=== PATIENT | male | born 1980 | race Caucasian/White ===

== ENCOUNTER 2017-12-23 16:38 | Emergency (ER) | payer SELFPAY ==
[2017-12-23] MEDS ORDERED: Sodium Chloride 0.9% 1,000 ML IV ONE (17:38)
[2017-12-23] MEDS ORDERED: Ketorolac 30 MG/ML SDV IVPUSH ONE (17:38)
[2017-12-23] MEDS ORDERED: Ondansetron 4 MG/2 ML SDV IVPUSH ONE (17:38)
--- NOTE | 2017-12-23 17:48 | EDM.PDOC ---
ED HPI GENERAL MEDICAL PROBLEM - General Chief Complaint: Abdominal Pain Stated Complaint: PT HAS STOMACH PAINS Time Seen by Provider: 12/23/17 17:30 Source of Information: Reports: Patient History Limitations: Reports: No Limitations - History of Present Illness INITIAL COMMENTS - FREE TEXT/NARRATIVE: HISTORY AND PHYSICAL: History of present illness: Patient comes to the emergency room complaining of right lower abdomen and right flank pain. Symptoms started yesterday mid morning and have continued into today. He has a history of kidney stones with prior stent on the right. Rates his pain currently as 8/10. He's been taking Tylenol and ibuprofen occasionally which does not really provide any improvement in his symptoms. He' s had no fever or chills, but he states that he works outside and so it is difficult to tell if he is having chills or if it's cold temperatures. He's had no chest pain, shortness of breath or difficulty breathing. no flu-like symptoms or symptoms of illness/infection. No burning with urination or hematuria. No urinary frequency. Bowels are normal. No muscle or joint aches or pains. Review of systems: As per history of present illness and below otherwise all systems reviewed and negative. Past medical history: As per history of present illness and as reviewed below otherwise noncontributory. Surgical history: As per history of present illness and as reviewed below otherwise noncontributory. Social history: No reported history of drug or alcohol abuse. Family history: As per history of present illness and as reviewed below otherwise noncontributory. Physical exam: Vitals are reviewed by me. Temp 99.2. HEENT: Atraumatic, normocephalic. Oral mucous membranes moist and pink., throat clear. neck supple, nontender, no lymphadenopathy. Lungs: Clear to auscultation, breath sounds equal bilaterally. Heart: S1S2, regular rate and rhythm. Abdomen: Bowel sounds are normoactive throughout. Abdomen is Soft, nondistended. He is tender over his right lower quadrant and flank area. Negative for masses, guarding or rebound. Mild CVA tenderness on the R. Pelvis: Stable nontender. Genitourinary: Deferred. Rectal: Deferred. Extremities: Atraumatic. No cyanosis or edema. Neurovascular unremarkable. Neuro: Awake, alert, oriented. Motor and sensory unremarkable throughout. Exam nonfocal. Diagnostics: [CBC, CMP, UA] Therapeutics: [1 L normal saline, Toradol 30 mg IV] Impression: [abdominal pain] Plan: [CBC, CMP, UA are WNL, which is discussed w/ patient. White count is less than 7. Temperature is 99.2 on presentation to the ER. Discussed that his abdominal pain could be an early sign signs of infection or inflammatory process as well as a kidney stone. Offered CT of his abdomen and pelvis which patient declines at this time stating that he does not have insurance to pay for it and he would like to see how he does over the next couple of days. We reviewed symptoms that would warrant a return to the emergency room. He is in agreement with today's plan and discussion. He is given Rx for Hydrocodone 5/325mg (#10) si po q 6 hours prn pain 0 RF's. All questions are answered and concerns are addressed. ] Definitive disposition and diagnosis as appropriate pending reevaluation and review of above. RLQ abdomen Pain Score (Numeric/FACES): 8 - Related Data Allergies Allergy/AdvReac Type Severity Reaction Status Date / Time No Known Allergies Allergy Verified 12/23/17 17:16 Home Meds: Home Meds . [No Known Home Meds] 12/23/17 [History] Past Medical History - Past Health History Medical/Surgical History: Denies Medical/Surgical History Genitourinary History: Reports: Renal Calculus Social & Family History - Family History Family Medical History: Noncontributory - Tobacco Use Smoking Status *Q: Current Every Day Smoker Years of Tobacco use: 20 Packs/Tins Daily: 1 - Recreational Drug Use Recreational Drug Use: No ED ROS GENERAL - Review of Systems Review Of Systems: ROS reveals no pertinent complaints other than HPI. ED EXAM, GI/ABD - Physical Exam Exam: See Below Course - Vital Signs Last Recorded V/S: Last Vital Signs Temp 99.1 F 12/23/17 18:49 Pulse 87 12/23/17 18:49 Resp 18 12/23/17 18:49 BP 132/68 12/23/17 18:49 Pulse Ox 98 12/23/17 18:49 - Orders/Labs/Meds Labs: Laboratory Tests 12/23/17 12/23/17 12/23/17 Range/Units 17:20 17:43 17:43 WBC 6.20 (4.0-11.0) K/uL RBC 4.79 (4.50-5.90) M/uL Hgb 15.0 (13.0-17.0) g/dL Hct 42.4 (38.0-50.0) % MCV 88.5 (80.0-98.0) fL MCH 31.3 (27.0-32.0) pg MCHC 35.4 (31.0-37.0) g/dL RDW Std Deviation 42.6 (28.0-62.0) fl RDW Coeff of Ritika 13 (11.0-15.0) % Plt Count 252 (150-400) K/uL MPV 9.00 (7.40-12.00) fL Neut % (Auto) 65.4 (48.0-80.0) % Lymph % (Auto) 26.1 (16.0-40.0) % [place] % (Auto) 7.1 (0.0-15.0) % Eos % (Auto) 0.8 (0.0-7.0) % Baso % (Auto) 0.6 (0.0-1.5) % Neut # (Auto) 4.1 (1.4-5.7) K/uL Lymph # (Auto) 1.6 (0.6-2.4) K/uL [place] # (Auto) 0.4 (0.0-0.8) K/uL Eos # (Auto) 0.1 (0.0-0.7) K/uL Baso # (Auto) 0.0 (0.0-0.1) K/uL Nucleated RBC % 0.0 /100WBC Nucleated RBCs # 0 K/uL Sodium 141 (136-146) mmol/L Potassium 3.8 (3.5-5.1) mmol/L Chloride 108 (98-110) mmol/L Carbon Dioxide 24 (21-31) mmol/L BUN 12 (6.0-23.0) mg/dL Creatinine 0.9 (0.6-1.5) mg/dL Est Cr Clr Drug Dosing 111.27 mL/min Estimated GFR (MDRD) > 60.0 ml/min Glucose 97 (60-110) mg/dL Calcium 9.3 (8.8-10.8) mg/dL Total Bilirubin 0.5 (0.1-1.5) mg/dL AST 28 (5-40) IU/L ALT 21 (8-54) IU/L Alkaline Phosphatase 71 (40-150) Total Protein 6.6 (6.0-8.0) g/dL Albumin 4.1 (3.5-5.0) g/dL Globulin 2.5 (2.0-3.5) g/dL Albumin/Globulin Ratio 1.6 (1.3-2.8) Urine Color YELLOW Urine Appearance CLEAR Urine pH 7.5 (5.0-8.0) Ur Specific [place] 1.020 (1.001-1.035) Urine Protein NEGATIVE (NEGATIVE) mg/dL Urine Glucose (UA) NEGATIVE (NEGATIVE) mg/dL Urine Ketones NEGATIVE (NEGATIVE) mg/dL Urine Occult Blood NEGATIVE (NEGATIVE) Urine Nitrite NEGATIVE (NEGATIVE) Urine Bilirubin NEGATIVE (NEGATIVE) Urine Urobilinogen 1.0 (<2.0) EU/dL Ur Leukocyte Esterase NEGATIVE (NEGATIVE) Urine RBC 0-1 (0-2/HPF) Urine WBC 0-3 (0-5/HPF) Ur Epithelial Cells FEW (NONE-FEW) Urine Bacteria FEW (NEGATIVE) Meds: Medications Discontinued Medications Generic Name Dose Route Start Last Admin Trade Name Freq PRN Reason Stop Dose Admin Sodium Chloride 1,000 mls @ 999 mls/hr 12/23/17 17:38 12/23/17 17:52 Normal Saline IV 12/23/17 18:38 999 mls/hr STAT ONE Administration Ketorolac Tromethamine 30 mg 12/23/17 17:38 12/23/17 17:52 Toradol IVPUSH 12/23/17 17:39 30 mg ONETIME ONE Administration Ondansetron HCl 4 mg 12/23/17 17:38 12/23/17 17:52 Zofran IVPUSH 12/23/17 17:39 4 mg ONETIME ONE Administration Departure - Departure Time of Disposition: 18:40 Disposition: Home, Self-Care 01 Condition: Good Clinical Impression: Abdominal pain - Discharge Information Instructions: Abdominal Pain, Adult Referrals: PCP,None [Primary Care Provider] - Forms: ED Department Discharge Additional Instructions: The following information is given to patients seen in the emergency department who are being discharged to home. This information is to outline your options for follow-up care. We provide all patients seen in our emergency department with a follow-up referral. The need for follow-up, as well as the timing and circumstances, are variable depending upon the specifics of your emergency department visit. If you don't have a primary care physician on staff, we will provide you with a referral. We always advise you to contact your personal physician following an emergency department visit to inform them of the circumstance of the visit and for follow-up with them and/or the need for any referrals to a consulting specialist. The emergency department will also refer you to a specialist when appropriate. This referral assures that you have the opportunity for follow-up care with a specialist. All of these measure are taken in an effort to provide you with optimal care, which includes your follow-up. Under all circumstances we always encourage you to contact your private physician who remains a resource for coordinating your care. When calling for follow-up care, please make the office aware that this follow-up is from your recent emergency room visit. If for any reason you are refused follow-up, please contact the [facility] emergency department at and asked to speak to the emergency department charge nurse. [facility] [address] [place], [place] [id number] Establish care with a local primary care provider at the clinic listed above in follow-up there in 48-72 hours. Take medications as prescribed. Push fluids, get plenty of rest. Return to ER as needed as discussed.
[2017-12-23 18:09] LABS: CHLORIDE,CL 108 mmol/L (98-110); SODIUM,NA 141 mmol/L (136-146)
== END 2017-12-23 18:49 | disposition home or self-care (01) ==
LOC: MW.ED 16:38
DX: R10.31 Right lower quadrant pain (principal); F17.210 Nicotine dependence, cigarettes, uncomplicated; Z87.442 Personal history of urinary calculi
CPT/HCPCS: 36415; 80053; 81001; 85025; 96361; 96374; 96375; 99284; J1885; J2405; J7040

== ENCOUNTER 2017-12-25 12:37 | Emergency (ER) | payer SELFPAY ==
[2017-12-25] MEDS ORDERED: Sodium Chloride 0.9% 2.5 ML Syringe FLUSH PRN (13:58)
[2017-12-25] MEDS ORDERED: Sodium Chloride 0.9% 10 ML Syringe FLUSH PRN (13:58)
[2017-12-25] MEDS ORDERED: Sodium Chloride 0.9% 1,000 ML IV ONE (13:58)
[2017-12-25] MEDS ORDERED: Ondansetron 4 MG/2 ML SDV IVPUSH ONE (14:07)
[2017-12-25] MEDS ORDERED: Morphine 2 MG/ML Syringe IVPUSH ONE (14:07)
--- NOTE | 2017-12-25 14:13 | EDM.PDOC ---
ED HPI GENERAL MEDICAL PROBLEM - General Chief Complaint: Abdominal Pain Stated Complaint: ABD PAIN Time Seen by Provider: 12/25/17 13:59 Source of Information: Reports: Patient History Limitations: Reports: No Limitations - History of Present Illness INITIAL COMMENTS - FREE TEXT/NARRATIVE: HISTORY AND PHYSICAL: History of present illness: [Patient comes to the emergency room complaining of worsening abdominal pain. He was evaluated in the emergency room on December 23 by this examiner. He was instructed to return to the emergency room for reevaluation if he felt that he was worsening. Since he was discharged home he's been experiencing fevers and chills. He has not checked his temperature but has had a lot of night sweats. His right lower quadrant abdominal discomfort has worsened. He has since developed pain to both sides of his low back. No change in urination, no blood in his urine. No chest pain, shortness of breath or difficulty breathing. No sore throat, earaches or runny nose. No headaches. He is overall just not feeling well. He has been taking the hydrocodone prn for his pain. Has 4 tablets left. He has not had any nausea or vomiting. His appetite has been very good with him eating large meals several times per day. Is not taking any medications for his symptoms. He has not taken any medications for his pain. Review of systems: As per history of present illness and below otherwise all systems reviewed and negative. Past medical history: As per history of present illness and as reviewed below otherwise noncontributory. Surgical history: As per history of present illness and as reviewed below otherwise noncontributory. Social history: No reported history of drug or alcohol abuse. Family history: As per history of present illness and as reviewed below otherwise noncontributory. Physical exam: Gen.: Well-developed well-nourished male in no acute distress. Vital signs are stable and reviewed by me. Skin feels warm to touch, but is afebrile emergency room. Oral mucous members are pink and moist. HEENT: Atraumatic, normocephalic. Oral mucous memory are pink and moist. Neck supple no lymphadenopathy. Lungs: Clear to auscultation, breath sounds equal bilaterally. Heart: S1S2, regular rate and rhythm. Abdomen: Sounds are normoactive throughout. Abdomen is soft and nondistended. He is tender with palpation over the right side of his abdomen worse to right lower quadrant. No guarding. Positive rebound. Negative for costovertebral tenderness. Pelvis: Stable nontender. Genitourinary: Deferred. Rectal: Deferred. Extremities: Atraumatic, no cyanosis or edema to feet or lower legs. Neurovascular unremarkable. Neuro: Awake, alert, oriented. Motor and sensory unremarkable throughout. Exam nonfocal. Diagnostics: [CBC, CMP, urinalysis, amylase, lipase, CT abdomen and pelvis with contrast] Therapeutics: [Morphine 2 mg IV, Zofran 4 mg IV, 1 L normal saline] Impression: [RLQ abd pain] Plan: [Discussed with patient: his CT abd and pelvis shows no abnormalities. Labs are WNL, amylase and lipase are normal. UA is clear. Urged him to follow with PCP for further work up as emergent conditions have been ruled out today. He verbalized understanding of today's discussed. Strict return precautions are reviewed. Rx written for Hydrocodone 5/325mg (#10) si po q 6 hours prn pain 0 RF's. Definitive disposition and diagnosis as appropriate pending reevaluation and review of above. right abdominal Pain Score (Numeric/FACES): 9 - Related Data Allergies Allergy/AdvReac Type Severity Reaction Status Date / Time No Known Allergies Allergy Verified 12/25/17 13:29 Home Meds: Home Meds . [No Known Home Meds] 12/23/17 [History] Past Medical History - Past Health History Medical/Surgical History: Denies Medical/Surgical History HEENT History: Reports: None Cardiovascular History: Reports: None Respiratory History: Reports: None Gastrointestinal History: Reports: None Genitourinary History: Reports: Renal Calculus Musculoskeletal History: Reports: None Neurological History: Reports: None Psychiatric History: Reports: None Endocrine/Metabolic History: Reports: None Hematologic History: Reports: None Immunologic History: Reports: None Oncologic (Cancer) History: Reports: None Dermatologic History: Reports: None - Past Surgical History Head Surgeries/Procedures: Reports: None HEENT Surgical History: Reports: None Cardiovascular Surgical History: Reports: None Respiratory Surgical History: Reports: None GI Surgical History: Reports: None Male Surgical History: Reports: None Endocrine Surgical History: Reports: None Neurological Surgical History: Reports: None Musculoskeletal Surgical History: Reports: None Oncologic Surgical History: Reports: None Dermatological Surgical History: Reports: None Social & Family History - Family History Family Medical History: Noncontributory - Tobacco Use Smoking Status *Q: Current Every Day Smoker Years of Tobacco use: 20 Packs/Tins Daily: 1 - Caffeine Use Caffeine Use: Reports: Soda - Recreational Drug Use Recreational Drug Use: No ED ROS GENERAL - Review of Systems Review Of Systems: ROS reveals no pertinent complaints other than HPI. ED EXAM, GI/ABD - Physical Exam Exam: See Below Course - Vital Signs Last Recorded V/S: Last Vital Signs Temp 97.5 F 12/25/17 13:29 Pulse 79 12/25/17 13:29 Resp 18 12/25/17 13:29 BP 141/92 H 12/25/17 13:29 Pulse Ox 98 12/25/17 13:29 - Orders/Labs/Meds Orders: Active Orders 24 hr Category Date Time Status Saline Lock Insert [OM.PC] Stat Oth 12/25/17 13:58 Ordered Labs: Laboratory Tests 12/25/17 12/25/17 12/25/17 Range/Units 14:12 14:12 14:12 WBC 10.62 (4.0-11.0) K/uL RBC 5.23 (4.50-5.90) M/uL Hgb 16.2 (13.0-17.0) g/dL Hct 46.1 (38.0-50.0) % MCV 88.1 (80.0-98.0) fL MCH 31.0 (27.0-32.0) pg MCHC 35.1 (31.0-37.0) g/dL RDW Std Deviation 41.9 (28.0-62.0) fl RDW Coeff of Ritika 13 (11.0-15.0) % Plt Count 263 (150-400) K/uL MPV 8.80 (7.40-12.00) fL Neut % (Auto) 75.3 (48.0-80.0) % Lymph % (Auto) 18.4 (16.0-40.0) % [place] % (Auto) 5.3 (0.0-15.0) % Eos % (Auto) 0.6 (0.0-7.0) % Baso % (Auto) 0.4 (0.0-1.5) % Neut # (Auto) 8.0 H (1.4-5.7) K/uL Lymph # (Auto) 2.0 (0.6-2.4) K/uL [place] # (Auto) 0.6 (0.0-0.8) K/uL Eos # (Auto) 0.1 (0.0-0.7) K/uL Baso # (Auto) 0.0 (0.0-0.1) K/uL Nucleated RBC % 0.0 /100WBC Nucleated RBCs # 0 K/uL Sodium 140 (136-146) mmol/L Potassium 3.6 (3.5-5.1) mmol/L Chloride 108 (98-110) mmol/L Carbon Dioxide 23 (21-31) mmol/L BUN 9 (6.0-23.0) mg/dL Creatinine 0.8 (0.6-1.5) mg/dL Est Cr Clr Drug Dosing 126.43 mL/min Estimated GFR (MDRD) > 60.0 ml/min Glucose 107 (60-110) mg/dL Calcium 9.5 (8.8-10.8) mg/dL Total Bilirubin 0.5 (0.1-1.5) mg/dL AST 23 (5-40) IU/L ALT 21 (8-54) IU/L Alkaline Phosphatase 64 (40-150) C-Reactive Protein < 0.02 (0.0-0.5) mg/dL Total Protein 7.0 (6.0-8.0) g/dL Albumin 4.3 (3.5-5.0) g/dL Globulin 2.7 (2.0-3.5) g/dL Albumin/Globulin Ratio 1.6 (1.3-2.8) Amylase 81 (10-90) U/L Lipase 52 (7-80) U/L Urine Color Urine Appearance Urine pH (5.0-8.0) Ur Specific [place] (1.001-1.035) Urine Protein (NEGATIVE) mg/dL Urine Glucose (UA) (NEGATIVE) mg/dL Urine Ketones (NEGATIVE) mg/dL Urine Occult Blood (NEGATIVE) Urine Nitrite (NEGATIVE) Urine Bilirubin (NEGATIVE) Urine Urobilinogen (<2.0) EU/dL Ur Leukocyte Esterase (NEGATIVE) Urine RBC (0-2/HPF) Urine WBC (0-5/HPF) Ur Epithelial Cells (NONE-FEW) Urine Bacteria (NEGATIVE) 12/25/17 Range/Units 14:30 WBC (4.0-11.0) K/uL RBC (4.50-5.90) M/uL Hgb (13.0-17.0) g/dL Hct (38.0-50.0) % MCV (80.0-98.0) fL MCH (27.0-32.0) pg MCHC (31.0-37.0) g/dL RDW Std Deviation (28.0-62.0) fl RDW Coeff of Ritika (11.0-15.0) % Plt Count (150-400) K/uL MPV (7.40-12.00) fL Neut % (Auto) (48.0-80.0) % Lymph % (Auto) (16.0-40.0) % [place]ran % (Auto) (0.0-15.0) % Eos % (Auto) (0.0-7.0) % Baso % (Auto) (0.0-1.5) % Neut # (Auto) (1.4-5.7) K/uL Lymph # (Auto) (0.6-2.4) K/uL [place]chran # (Auto) (0.0-0.8) K/uL Eos # (Auto) (0.0-0.7) K/uL Baso # (Auto) (0.0-0.1) K/uL Nucleated RBC % /100WBC Nucleated RBCs # K/uL Sodium (136-146) mmol/L Potassium (3.5-5.1) mmol/L Chloride (98-110) mmol/L Carbon Dioxide (21-31) mmol/L BUN (6.0-23.0) mg/dL Creatinine (0.6-1.5) mg/dL Est Cr Clr Drug Dosing mL/min Estimated GFR (MDRD) ml/min Glucose (60-110) mg/dL Calcium (8.8-10.8) mg/dL Total Bilirubin (0.1-1.5) mg/dL AST (5-40) IU/L ALT (8-54) IU/L Alkaline Phosphatase (40-150) C-Reactive Protein (0.0-0.5) mg/dL Total Protein (6.0-8.0) g/dL Albumin (3.5-5.0) g/dL Globulin (2.0-3.5) g/dL Albumin/Globulin Ratio (1.3-2.8) Amylase (10-90) U/L Lipase (7-80) U/L Urine Color YELLOW Urine Appearance CLEAR Urine pH 7.0 (5.0-8.0) Ur Specific [place] 1.010 (1.001-1.035) Urine Protein NEGATIVE (NEGATIVE) mg/dL Urine Glucose (UA) NEGATIVE (NEGATIVE) mg/dL Urine Ketones NEGATIVE (NEGATIVE) mg/dL Urine Occult Blood NEGATIVE (NEGATIVE) Urine Nitrite NEGATIVE (NEGATIVE) Urine Bilirubin NEGATIVE (NEGATIVE) Urine Urobilinogen 0.2 (<2.0) EU/dL Ur Leukocyte Esterase NEGATIVE (NEGATIVE) Urine RBC 0-1 (0-2/HPF) Urine WBC 0-1 (0-5/HPF) Ur Epithelial Cells RARE (NONE-FEW) Urine Bacteria RARE (NEGATIVE) Meds: Medications Discontinued Medications Generic Name Dose Route Start Last Admin Trade Name Freq PRN Reason Stop Dose Admin Sodium Chloride 1,000 mls @ 999 mls/hr 12/25/17 13:58 12/25/17 14:11 Normal Saline IV 12/25/17 14:58 999 mls/hr .Bolus ONE Administration Iopamidol 100 ml 12/25/17 15:27 12/25/17 15:30 Isovue Multipack-370 (76%) IVPUSH 12/25/17 15:28 100 ml ONETIME STA Administration Morphine Sulfate 2 mg 12/25/17 14:07 12/25/17 14:14 Morphine IVPUSH 12/25/17 14:08 2 mg ONETIME ONE Administration Ondansetron HCl 4 mg 12/25/17 14:07 12/25/17 14:14 Zofran IVPUSH 12/25/17 14:08 4 mg ONETIME ONE Administration Sodium Chloride 10 ml 12/25/17 13:58 12/25/17 14:11 Saline Flush FLUSH 10 ml ASDIRECTED PRN Administration Keep Vein Open Sodium Chloride 2.5 ml 12/25/17 13:58 12/25/17 14:12 Saline Flush FLUSH 2.5 ml ASDIRECTED PRN Administration Keep Vein Open Departure - Departure Time of Disposition: 16:45 Disposition: Home, Self-Care 01 Condition: Good Clinical Impression: Abdominal pain - Discharge Information Instructions: Abdominal Pain, Adult, [id number] Referrals: PCP,None [Primary Care Provider] - Forms: ED Department Discharge Additional Instructions: The following information is given to patients seen in the emergency department who are being discharged to home. This information is to outline your options for follow-up care. We provide all patients seen in our emergency department with a follow-up referral. The need for follow-up, as well as the timing and circumstances, are variable depending upon the specifics of your emergency department visit. If you don't have a primary care physician on staff, we will provide you with a referral. We always advise you to contact your personal physician following an emergency department visit to inform them of the circumstance of the visit and for follow-up with them and/or the need for any referrals to a consulting specialist. The emergency department will also refer you to a specialist when appropriate. This referral assures that you have the opportunity for follow-up care with a specialist. All of these measure are taken in an effort to provide you with optimal care, which includes your follow-up. Under all circumstances we always encourage you to contact your private physician who remains a resource for coordinating your care. When calling for follow-up care, please make the office aware that this follow-up is from your recent emergency room visit. If for any reason you are refused follow-up, please contact the [facility] emergency department at and asked to speak to the emergency department charge nurse. [address] [address] Establish care with a local primary care provider at the clinic listed above. Push fluids, continue to monitor symptoms. Return to ER as needed as discussed.
[2017-12-25 14:46] LABS: CHLORIDE,CL 108 mmol/L (98-110); SODIUM,NA 140 mmol/L (136-146)
[2017-12-25] MEDS ORDERED: Iopamidol 755 MG/ML 500 ML Multipack Bottle IVPUSH STA (15:27)
--- NOTE | 2017-12-25 16:13 | CT ---
CT of the abdomen and pelvis with contrast. HISTORY: Pain TECHNIQUE: Axial CT images were obtained of the abdomen and pelvis following administration of 100 mL of Isovue-370 in the right antecubital fossa without complication. Coronal and sagittal reconstructi ons obtained. FINDINGS: The lung bases are clear, no pleural effusion. The liver, spleen, adrenal glands, and pancreas appear normal. The gallbladder is normal. No bulky re troperitoneal lymphadenopathy or abdominal ascites. The kidneys enhance and function symmetrically without evidence of obstructive uropathy. The visualized large and small bowel are normal in caliber without evidence of obstruction. The appen german is normal. No pelvic lymphadenopathy or free pelvic fluid. The urinary bladder is normal. No suspicious osseous abnormalities identified. Chronic appearing spondylolysis at L5 with minimal an terolisthesis. No suspicious osseous abnormalities identified. IMPRESSION: 1. No acute findings identified within the abdomen or pelvis.
== END 2017-12-25 16:55 | disposition home or self-care (01) ==
LOC: MW.ED 12:37
DX: R10.31 Right lower quadrant pain (principal); F17.210 Nicotine dependence, cigarettes, uncomplicated
CPT/HCPCS: 36415; 74177; 80053; 81001; 82150; 83690; 85025; 86140; 96361; 96374; 96375; 99284; J2270; J2405; J7040; Q9967

== ENCOUNTER 2018-01-15 13:37 | Emergency (ER) | payer SELFPAY ==
--- NOTE | 2018-01-15 14:42 | EDM.PDOC ---
<Umm Soliman - Last Filed: 01/15/18 14:59> ED HPI GENERAL MEDICAL PROBLEM - General Chief Complaint: Flank Pain Stated Complaint: side and back pain Time Seen by Provider: 01/15/18 14:15 - History of Present Illness INITIAL COMMENTS - FREE TEXT/NARRATIVE: This is Dr. Soliman dictating an addendum note as I am the supervising physician on this case. I agree with history and physical as above and on my evaluation his discomfort and tenderness on palpation is lower in the right lumbar area going to the right side. It is not somewhat high in the flank and the CVA area. There is some tenderness with palpation but no defects or deformities. I agree that we should continue with the workup as above due to his history but this may be all musculoskeletal in etiology. We will plan on following the testing results and disposition appropriately. The patient is concerned because he does not have the money for clinic visits and we will give him information to pursue help with following up in the clinic. - Related Data Allergies Allergy/AdvReac Type Severity Reaction Status Date / Time No Known Allergies Allergy Verified 12/25/17 13:29 Home Meds: Home Meds Hydrocodone/Acetaminophen [Hydrocodon-Acetaminophen 5-325] 01/15/18 [History] Orphenadrine [Norflex] 100 mg PO QID PRN #28 tab.er 01/15/18 [Rx] Course - Vital Signs Last Recorded V/S: Last Vital Signs Temp 98.0 F 01/15/18 13:59 Pulse 87 01/15/18 13:59 Resp 18 01/15/18 13:59 BP 136/93 H 01/15/18 13:59 Pulse Ox 97 01/15/18 13:59 - Orders/Labs/Meds Orders: Active Orders 24 hr Category Date Time Status CHLAMYDIA AND GONORRHEA BY TMA Stat Lab 01/15/18 14:43 Received CULTURE URINE [RM] Stat Lab 01/15/18 14:26 Received Labs: Laboratory Tests 01/15/18 01/15/18 01/15/18 Range/Units 14:31 14:43 14:43 WBC (4.0-11.0) K/uL RBC (4.50-5.90) M/uL Hgb (13.0-17.0) g/dL Hct (38.0-50.0) % MCV (80.0-98.0) fL MCH (27.0-32.0) pg MCHC (31.0-37.0) g/dL RDW Std Deviation (28.0-62.0) fl RDW Coeff of Ritika (11.0-15.0) % Plt Count (150-400) K/uL MPV (7.40-12.00) fL Neut % (Auto) (48.0-80.0) % Lymph % (Auto) (16.0-40.0) % Sandoval % (Auto) (0.0-15.0) % Eos % (Auto) (0.0-7.0) % Baso % (Auto) (0.0-1.5) % Neut # (Auto) (1.4-5.7) K/uL Lymph # (Auto) (0.6-2.4) K/uL Sandoval # (Auto) (0.0-0.8) K/uL Eos # (Auto) (0.0-0.7) K/uL Baso # (Auto) (0.0-0.1) K/uL Nucleated RBC % /100WBC Nucleated RBCs # K/uL Sodium 139 (136-148) mmol/L Potassium 3.9 (3.5-5.1) mmol/L Chloride 104 (98-107) mmol/L Carbon Dioxide 23.5 (21.0-32.0) mmol/L BUN 15 (7.0-18.0) mg/dL Creatinine 0.7 L (0.8-1.3) mg/dL Est Cr Clr Drug Dosing TNP Estimated GFR (MDRD) > 60.0 ml/min Glucose 103 (74-106) mg/dL Calcium 8.9 (8.5-10.1) mg/dL Total Bilirubin 0.3 (0.2-1.0) mg/dL AST 30 (15-37) U/L ALT 34 (14-63) U/L Alkaline Phosphatase 79 (46-116) U/L Total Protein 6.8 (6.4-8.2) g/dL Albumin 3.7 (3.4-5.0) g/dL Globulin 3.1 (2.0-3.5) g/dL Albumin/Globulin Ratio 1.2 L (1.3-2.8) Lipase 189 (73-393) U/L Urine Color YELLOW Urine Appearance CLEAR Urine pH 6.5 (5.0-8.0) Ur Specific Mystic 1.015 (1.001-1.035) Urine Protein NEGATIVE (NEGATIVE) mg/dL Urine Glucose (UA) NEGATIVE (NEGATIVE) mg/dL Urine Ketones NEGATIVE (NEGATIVE) mg/dL Urine Occult Blood NEGATIVE (NEGATIVE) Urine Nitrite NEGATIVE (NEGATIVE) Urine Bilirubin NEGATIVE (NEGATIVE) Urine Urobilinogen 1.0 (<2.0) EU/dL Ur Leukocyte Esterase NEGATIVE (NEGATIVE) Urine RBC 0-1 (0-2/HPF) Urine WBC 0-1 (0-5/HPF) Ur Epithelial Cells RARE (NONE-FEW) Urine Bacteria RARE (NEGATIVE) H. pylori IgG Antibody NEGATIVE (NEG) 01/15/18 Range/Units 14:43 WBC 7.47 (4.0-11.0) K/uL RBC 4.98 (4.50-5.90) M/uL Hgb 15.6 (13.0-17.0) g/dL Hct 44.4 (38.0-50.0) % MCV 89.2 (80.0-98.0) fL MCH 31.3 (27.0-32.0) pg MCHC 35.1 (31.0-37.0) g/dL RDW Std Deviation 45.3 (28.0-62.0) fl RDW Coeff of Ritika 14 (11.0-15.0) % Plt Count 269 (150-400) K/uL MPV 8.50 (7.40-12.00) fL Neut % (Auto) 60.6 (48.0-80.0) % Lymph % (Auto) 26.2 (16.0-40.0) % Sandoval % (Auto) 9.2 (0.0-15.0) % Eos % (Auto) 3.2 (0.0-7.0) % Baso % (Auto) 0.8 (0.0-1.5) % Neut # (Auto) 4.5 (1.4-5.7) K/uL Lymph # (Auto) 2.0 (0.6-2.4) K/uL Sandoval # (Auto) 0.7 (0.0-0.8) K/uL Eos # (Auto) 0.2 (0.0-0.7) K/uL Baso # (Auto) 0.1 (0.0-0.1) K/uL Nucleated RBC % 0.0 /100WBC Nucleated RBCs # 0 K/uL Sodium (136-148) mmol/L Potassium (3.5-5.1) mmol/L Chloride (98-107) mmol/L Carbon Dioxide (21.0-32.0) mmol/L BUN (7.0-18.0) mg/dL Creatinine (0.8-1.3) mg/dL Est Cr Clr Drug Dosing Estimated GFR (MDRD) ml/min Glucose (74-106) mg/dL Calcium (8.5-10.1) mg/dL Total Bilirubin (0.2-1.0) mg/dL AST (15-37) U/L ALT (14-63) U/L Alkaline Phosphatase (46-116) U/L Total Protein (6.4-8.2) g/dL Albumin (3.4-5.0) g/dL Globulin (2.0-3.5) g/dL Albumin/Globulin Ratio (1.3-2.8) Lipase (73-393) U/L Urine Color Urine Appearance Urine pH (5.0-8.0) Ur Specific Mystic (1.001-1.035) Urine Protein (NEGATIVE) mg/dL Urine Glucose (UA) (NEGATIVE) mg/dL Urine Ketones (NEGATIVE) mg/dL Urine Occult Blood (NEGATIVE) Urine Nitrite (NEGATIVE) Urine Bilirubin (NEGATIVE) Urine Urobilinogen (<2.0) EU/dL Ur Leukocyte Esterase (NEGATIVE) Urine RBC (0-2/HPF) Urine WBC (0-5/HPF) Ur Epithelial Cells (NONE-FEW) Urine Bacteria (NEGATIVE) H. pylori IgG Antibody (NEG) Departure - Departure Disposition: Home, Self-Care 01 Clinical Impression: Muscle strain - Discharge Information Prescriptions: Orphenadrine [Norflex] 100 mg PO QID PRN #28 tab.er PRN Reason: Muscle Spasm Instructions: Muscle Strain, [id number] Referrals: PCP,None [Primary Care Provider] - Forms: ED Department Discharge Additional Instructions: The following information is given to patients seen in the emergency department who are being discharged to home. This information is to outline your options for follow-up care. We provide all patients seen in our emergency department with a follow-up referral. The need for follow-up, as well as the timing and circumstances, are variable depending upon the specifics of your emergency department visit. If you don't have a primary care physician on staff, we will provide you with a referral. We always advise you to contact your personal physician following an emergency department visit to inform them of the circumstance of the visit and for follow-up with them and/or the need for any referrals to a consulting specialist. The emergency department will also refer you to a specialist when appropriate. This referral assures that you have the opportunity for follow-up care with a specialist. All of these measure are taken in an effort to provide you with optimal care, which includes your follow-up. Under all circumstances we always encourage you to contact your private physician who remains a resource for coordinating your care. When calling for follow-up care, please make the office aware that this follow-up is from your recent emergency room visit. If for any reason you are refused follow-up, please contact the [facility] Emergency Department at and asked to speak to the emergency department charge nurse. [facility] [address] [place] [address] Please call the above number to set up an appointment with primary care provider for follow-up after being seen in the ER today. - My Orders Last 24 Hours: My Active Orders 01/15/18 14:26 CULTURE URINE [RM] Stat 01/15/18 14:43 CHLAMYDIA AND GONORRHEA BY TMA Stat - Assessment/Plan Last 24 Hours: My Active Orders 01/15/18 14:26 CULTURE URINE [RM] Stat 01/15/18 14:43 CHLAMYDIA AND GONORRHEA BY TMA Stat <Renard Tam - Last Filed: 01/15/18 16:24> ED HPI GENERAL MEDICAL PROBLEM - General Source of Information: Reports: Patient History Limitations: Reports: No Limitations - History of Present Illness INITIAL COMMENTS - FREE TEXT/NARRATIVE: HISTORY AND PHYSICAL: History of present illness: 37-year-old male with persistent right-sided flank pain that presents to the ER with a chief complaint of continuing flank pain. Patient was seen in the ER twice in December with the same chief complaint. Abdomen/pelvis CT and complete blood work was unremarkable both times. The patient was given prescription for [place] and told to follow-up if his pain did not improve. He did not establish with a PCP. He presents today stating that the pain is still present on the right side of the torso and radiates down to the right lower quadrant. He still has his appendix and gallbladder. He has not had any abdominal surgeries. He denies any discomfort with urination and any blood in the urine. Apart from his prescribed medications, he is not taking any other medications. He denies any changes in bowel or bladder habit. He does have a history of kidney stones and states that this is very consistent with his past episodes of kidney stones. He also had a stent placed secondary to recurrent kidney stones. His last kidney stone was one year ago. He states that after he was seen in the ER last time that his pain resolved for 3-4 days and then returned. He denies any nausea, vomiting, constipation, diarrhea, fever. Review of systems: As per history of present illness and below otherwise all systems reviewed and negative. Past medical history: As per history of present illness and as reviewed below otherwise noncontributory. Surgical history: As per history of present illness and as reviewed below otherwise noncontributory. Social history: No reported history of drug or alcohol abuse. Family history: As per history of present illness and as reviewed below otherwise noncontributory. Physical exam: HEENT: Atraumatic, normocephalic Lungs: Clear to auscultation, breath sounds equal bilaterally, chest nontender. Heart: S1S2, regular, negative for clicks, rubs, or JVD. Abdomen: Mild right-sided CVA tenderness with mild tenderness with palpation in the right lower quadrant. Normoactive bowel sounds present. No rebound tenderness or guarding. No organomegaly appreciated. Pelvis: Stable nontender. Genitourinary: Deferred. Extremities: Atraumatic, negative for cords or calf pain. Neurovascular unremarkable. Neuro: Awake, alert, oriented. Cranial nerves II through XII unremarkable. Cerebellum unremarkable. Motor and sensory unremarkable throughout. Exam nonfocal. Diagnostics: CBC, CMP, UA with urine culture, lipase, H. pylori, gonorrhea/chlamydia, kidney and bladder ultrasound CBC, CMP, UA, lipase, H. pylori and abdominal ultrasound are all unremarkable. Gonorrhea/chlamydia are pending. Therapeutics: [] Impression: #1. Muscle strain of back Plan: #1. Prescription given for Norflex 100 mg 4 times a day as needed for muscle spasm, 20 tabs, 0 refills. #2. Patient given contact information for the current headache in clinic today to set up an appointment with the PCP for follow-up after being seen in the ER. Definitive disposition and diagnosis as appropriate pending reevaluation and review of above. Past Medical History - Past Health History Medical/Surgical History: Denies Medical/Surgical History HEENT History: Reports: None Cardiovascular History: Reports: None Respiratory History: Reports: None Gastrointestinal History: Reports: None Genitourinary History: Reports: Renal Calculus Musculoskeletal History: Reports: None Neurological History: Reports: None Psychiatric History: Reports: None Endocrine/Metabolic History: Reports: None Hematologic History: Reports: None Immunologic History: Reports: None Oncologic (Cancer) History: Reports: None Dermatologic History: Reports: None - Past Surgical History Head Surgeries/Procedures: Reports: None HEENT Surgical History: Reports: None Cardiovascular Surgical History: Reports: None Respiratory Surgical History: Reports: None GI Surgical History: Reports: None Male Surgical History: Reports: Ureteral Stent Endocrine Surgical History: Reports: None Neurological Surgical History: Reports: None Musculoskeletal Surgical History: Reports: None Oncologic Surgical History: Reports: None Dermatological Surgical History: Reports: None Social & Family History - Family History Family Medical History: Noncontributory - Tobacco Use Smoking Status *Q: Current Every Day Smoker Years of Tobacco use: 20 Packs/Tins Daily: 0.7 - Caffeine Use Caffeine Use: Reports: Soda - Recreational Drug Use Recreational Drug Use: No ED ROS GENERAL - Review of Systems Review Of Systems: ROS reveals no pertinent complaints other than HPI. ED EXAM, RENAL/ - Physical Exam Exam: See Below Text/Narrative:: See dictation Course - Orders/Labs/Meds Labs: Laboratory Tests 01/15/18 01/15/18 01/15/18 Range/Units 14:31 14:43 14:43 WBC (4.0-11.0) K/uL RBC (4.50-5.90) M/uL Hgb (13.0-17.0) g/dL Hct (38.0-50.0) % MCV (80.0-98.0) fL MCH (27.0-32.0) pg MCHC (31.0-37.0) g/dL RDW Std Deviation (28.0-62.0) fl RDW Coeff of Ritika (11.0-15.0) % Plt Count (150-400) K/uL MPV (7.40-12.00) fL Neut % (Auto) (48.0-80.0) % Lymph % (Auto) (16.0-40.0) % Sandoval % (Auto) (0.0-15.0) % Eos % (Auto) (0.0-7.0) % Baso % (Auto) (0.0-1.5) % Neut # (Auto) (1.4-5.7) K/uL Lymph # (Auto) (0.6-2.4) K/uL Sandoval # (Auto) (0.0-0.8) K/uL Eos # (Auto) (0.0-0.7) K/uL Baso # (Auto) (0.0-0.1) K/uL Nucleated RBC % /100WBC Nucleated RBCs # K/uL Sodium 139 (136-148) mmol/L Potassium 3.9 (3.5-5.1) mmol/L Chloride 104 (98-107) mmol/L Carbon Dioxide 23.5 (21.0-32.0) mmol/L BUN 15 (7.0-18.0) mg/dL Creatinine 0.7 L (0.8-1.3) mg/dL Est Cr Clr Drug Dosing TNP Estimated GFR (MDRD) > 60.0 ml/min Glucose 103 (74-106) mg/dL Calcium 8.9 (8.5-10.1) mg/dL Total Bilirubin 0.3 (0.2-1.0) mg/dL AST 30 (15-37) U/L ALT 34 (14-63) U/L Alkaline Phosphatase 79 (46-116) U/L Total Protein 6.8 (6.4-8.2) g/dL Albumin 3.7 (3.4-5.0) g/dL Globulin 3.1 (2.0-3.5) g/dL Albumin/Globulin Ratio 1.2 L (1.3-2.8) Lipase 189 (73-393) U/L Urine Color YELLOW Urine Appearance CLEAR Urine pH 6.5 (5.0-8.0) Ur Specific Mystic 1.015 (1.001-1.035) Urine Protein NEGATIVE (NEGATIVE) mg/dL Urine Glucose (UA) NEGATIVE (NEGATIVE) mg/dL Urine Ketones NEGATIVE (NEGATIVE) mg/dL Urine Occult Blood NEGATIVE (NEGATIVE) Urine Nitrite NEGATIVE (NEGATIVE) Urine Bilirubin NEGATIVE (NEGATIVE) Urine Urobilinogen 1.0 (<2.0) EU/dL Ur Leukocyte Esterase NEGATIVE (NEGATIVE) Urine RBC 0-1 (0-2/HPF) Urine WBC 0-1 (0-5/HPF) Ur Epithelial Cells RARE (NONE-FEW) Urine Bacteria RARE (NEGATIVE) H. pylori IgG Antibody NEGATIVE (NEG) 01/15/18 Range/Units 14:43 WBC 7.47 (4.0-11.0) K/uL RBC 4.98 (4.50-5.90) M/uL Hgb 15.6 (13.0-17.0) g/dL Hct 44.4 (38.0-50.0) % MCV 89.2 (80.0-98.0) fL MCH 31.3 (27.0-32.0) pg MCHC 35.1 (31.0-37.0) g/dL RDW Std Deviation 45.3 (28.0-62.0) fl RDW Coeff of Ritika 14 (11.0-15.0) % Plt Count 269 (150-400) K/uL MPV 8.50 (7.40-12.00) fL Neut % (Auto) 60.6 (48.0-80.0) % Lymph % (Auto) 26.2 (16.0-40.0) % Sandoval % (Auto) 9.2 (0.0-15.0) % Eos % (Auto) 3.2 (0.0-7.0) % Baso % (Auto) 0.8 (0.0-1.5) % Neut # (Auto) 4.5 (1.4-5.7) K/uL Lymph # (Auto) 2.0 (0.6-2.4) K/uL Sandoval # (Auto) 0.7 (0.0-0.8) K/uL Eos # (Auto) 0.2 (0.0-0.7) K/uL Baso # (Auto) 0.1 (0.0-0.1) K/uL Nucleated RBC % 0.0 /100WBC Nucleated RBCs # 0 K/uL Sodium (136-148) mmol/L Potassium (3.5-5.1) mmol/L Chloride (98-107) mmol/L Carbon Dioxide (21.0-32.0) mmol/L BUN (7.0-18.0) mg/dL Creatinine (0.8-1.3) mg/dL Est Cr Clr Drug Dosing Estimated GFR (MDRD) ml/min Glucose (74-106) mg/dL Calcium (8.5-10.1) mg/dL Total Bilirubin (0.2-1.0) mg/dL AST (15-37) U/L ALT (14-63) U/L Alkaline Phosphatase (46-116) U/L Total Protein (6.4-8.2) g/dL Albumin (3.4-5.0) g/dL Globulin (2.0-3.5) g/dL Albumin/Globulin Ratio (1.3-2.8) Lipase (73-393) U/L Urine Color Urine Appearance Urine pH (5.0-8.0) Ur Specific Mystic (1.001-1.035) Urine Protein (NEGATIVE) mg/dL Urine Glucose (UA) (NEGATIVE) mg/dL Urine Ketones (NEGATIVE) mg/dL Urine Occult Blood (NEGATIVE) Urine Nitrite (NEGATIVE) Urine Bilirubin (NEGATIVE) Urine Urobilinogen (<2.0) EU/dL Ur Leukocyte Esterase (NEGATIVE) Urine RBC (0-2/HPF) Urine WBC (0-5/HPF) Ur Epithelial Cells (NONE-FEW) Urine Bacteria (NEGATIVE) H. pylori IgG Antibody (NEG) Departure - Departure Time of Disposition: 16:20 Condition: Good
[2018-01-15 15:29] LABS: CHLORIDE,CL 104 mmol/L (98-107); SODIUM,NA 139 mmol/L (136-148)
--- NOTE | 2018-01-15 15:58 | US ---
EXAMINATION: Renal ultrasound HISTORY: Flank pain COMPARISON: 12/25/2017 TECHNIQUE: Grayscale and color Doppler images obtained of the kidneys and bladder. FINDINGS: The right kidney measures at least 10.6 cm and the left kidney measures 12.4 cm pole-to-eric e without evidence of hydronephrosis. Renal echotexture is normal bilaterally. No abnormal color Dopp ler flow. No perinephric fluid collections. The urinary bladder is normal. IMPRESSION: Unremarkable renal ultrasound.
== END 2018-01-15 16:30 | disposition home or self-care (01) ==
LOC: MW.ED 13:37
DX: S39.012A Strain of muscle, fascia and tendon of lower back, initial encounter (principal); Z96.0 Presence of urogenital implants; F17.210 Nicotine dependence, cigarettes, uncomplicated; Z87.442 Personal history of urinary calculi; X58.XXXA Exposure to other specified factors, initial encounter
CPT/HCPCS: 36415; 76775; 76775-26; 80053; 81001; 83690; 85025; 86677; 87086; 87491; 87591; 99283; 99284-25

== ENCOUNTER 2018-02-08 10:10 | Emergency (ER) | payer SELFPAY ==
--- NOTE | 2018-02-08 10:19 | EDM.PDOC ---
ED HPI GENERAL MEDICAL PROBLEM - General Stated Complaint: LOWER RT SIDE HURTS Time Seen by Provider: 02/08/18 10:11 Source of Information: Reports: Patient History Limitations: Reports: No Limitations - History of Present Illness INITIAL COMMENTS - FREE TEXT/NARRATIVE: HISTORY AND PHYSICAL: History of present illness: Patient is a 37-year-old male who presents to the emergency room with recurrent right-sided upper quadrant and right flank pain. He states this has been going on intermittently for accidentally 2 months. Has been seen in the emergency room 3 previous times. He states that "I know something has to be going wrong" but has been told his exams and lab results have been normal. He describes the pain as a sharp stabbing pain that starts in the right mid back and wraps around to the right generalized abdominal area. He does not have any symptoms associated with food. He denies any nausea, vomiting, diarrhea or constipation. He denies any fever, chills, chest pain or shortness of breath. He states that the [place] and Norflex have helped eliminate some of the discomfort but he can still "feel it". Patient is able to eat and drink appropriately. Denies any dysuria, hematuria or change in bowel pattern. Denies any injury or trauma. Review of systems: As per history of present illness and below otherwise all systems reviewed and negative. Past medical history: As per history of present illness and as reviewed below otherwise noncontributory. Surgical history: As per history of present illness and as reviewed below otherwise noncontributory. Social history: No reported history of drug or alcohol abuse. Family history: As per history of present illness and as reviewed below otherwise noncontributory. Physical exam: General: Well-developed and well-nourished 37-year-old male. Alert and oriented. Nontoxic appearing and in no acute distress. HEENT: Atraumatic, normocephalic, pupils equal and reactive bilaterally, negative for conjunctival pallor or scleral icterus, mucous membranes moist, throat clear, neck supple, nontender, trachea midline. No drooling or trismus noted. No meningeal signs Lungs: Clear to auscultation, breath sounds equal bilaterally, chest nontender. Heart: S1S2, regular rate and rhythm without overt murmur Abdomen: Soft, nondistended, right upper quadrant tenderness with palpation. Negative for masses or hepatosplenomegaly. Mild costovertebral tenderness to the right, get up on the left. Pelvis: Stable nontender. Genitourinary: Deferred. Rectal: Deferred. Skin: Intact, warm, dry. No lesions or rashes noted. Extremities: Atraumatic, negative for cords or calf pain. Neurovascular unremarkable. Neuro: Awake, alert, oriented. Cranial nerves II through XII unremarkable. Cerebellum unremarkable. Motor and sensory unremarkable throughout. Exam nonfocal. Notes: Patient has been seen in the ER on 12/23/17, 12/25/17, 01/15/18 for similar complaints. During this time he has had a full lab workup (CBC, CMP, Amylase, Lipase, UA, UC, Gonorrhea/Chlamydia, H.Pylori), CT of the abdomen and pelvis and renal ultrasound. All these findings have been within normal limits. Prescribed [place] and Norflex and encouraged to follow up with his primary care provider. Patient states he hasn't followed up with a primary care provider because he doesn't have insurance and can't afford to see a PCP. Education was done on medical financial assistance for future reference. The ultrasound of the gallbladder and right renal was within normal limits. Lab work for today was within normal limits. Offered patient Toradol IM. Patient to be discharged to home and encouraged him to follow up with the general surgeon for evaluation and HIDA scan. Diagnostics: CBC, CMP, UA, gallbladder/renal ultrasound Therapeutics: [] Impression: Abdominal Pain Plan: 1. Cataflam has been prescribed for you. May take one tab up to three times daily as needed for pain. Please take with food. Do not take additional NSAIDs with this medication. May take Tylenol as needed for pain management. 2. Please follow-up with the general surgeon for further evaluation and HIDA scan. 3. Return to the ED as needed and as discussed. Definitive disposition and diagnosis as appropriate pending reevaluation and review of above. Duration: Day(s):, Chronic Location: Reports: Abdomen, Back Right Flank Pain Score (Numeric/FACES): 8 - Related Data Allergies Allergy/AdvReac Type Severity Reaction Status Date / Time No Known Allergies Allergy Verified 02/08/18 10:18 Home Meds: Home Meds Hydrocodone/Acetaminophen [Hydrocodon-Acetaminophen 5-325] 1 tab PRN 01/15/18 [ History] Orphenadrine [Norflex] 100 mg PO QID PRN #28 tab.er 01/15/18 [Rx] Diclofenac Potassium [Cataflam] 50 mg PO TID PRN #20 tab 02/08/18 [Rx] Past Medical History - Past Health History Medical/Surgical History: Denies Medical/Surgical History HEENT History: Reports: None Cardiovascular History: Reports: None Respiratory History: Reports: None Gastrointestinal History: Reports: None Genitourinary History: Reports: Renal Calculus Musculoskeletal History: Reports: None Neurological History: Reports: None Psychiatric History: Reports: None Endocrine/Metabolic History: Reports: None Hematologic History: Reports: None Immunologic History: Reports: None Oncologic (Cancer) History: Reports: None Dermatologic History: Reports: None - Past Surgical History Head Surgeries/Procedures: Reports: None HEENT Surgical History: Reports: None Cardiovascular Surgical History: Reports: None Respiratory Surgical History: Reports: None GI Surgical History: Reports: None Male Surgical History: Reports: Ureteral Stent Endocrine Surgical History: Reports: None Neurological Surgical History: Reports: None Musculoskeletal Surgical History: Reports: None Oncologic Surgical History: Reports: None Dermatological Surgical History: Reports: None Social & Family History - Family History Family Medical History: Noncontributory - Tobacco Use Smoking Status *Q: Current Every Day Smoker Years of Tobacco use: 20 Packs/Tins Daily: 0.7 - Caffeine Use Caffeine Use: Reports: Soda - Recreational Drug Use Recreational Drug Use: No ED ROS GENERAL - Review of Systems Review Of Systems: ROS reveals no pertinent complaints other than HPI. ED EXAM, GI/ABD - Physical Exam Exam: See Below (See dictation) Course - Vital Signs Last Recorded V/S: Last Vital Signs Temp 97.3 F 02/08/18 10:16 Pulse 98 02/08/18 10:16 Resp 18 02/08/18 10:16 BP 136/94 H 02/08/18 10:16 Pulse Ox 97 02/08/18 10:16 - Orders/Labs/Meds Orders: Active Orders 24 hr Category Date Time Status COMPREHENSIVE METABOLIC PN,CMP [CHEM] Stat Lab 02/08/18 10:31 Received UA W/MICROSCOPIC [URIN] Stat Lab 02/08/18 10:30 Ordered Labs: Laboratory Tests 02/08/18 02/08/18 Range/Units 10:30 10:31 WBC 9.55 (4.0-11.0) K/uL RBC 4.94 (4.50-5.90) M/uL Hgb 15.1 (13.0-17.0) g/dL Hct 44.3 (38.0-50.0) % MCV 89.7 (80.0-98.0) fL MCH 30.6 (27.0-32.0) pg MCHC 34.1 (31.0-37.0) g/dL RDW Std Deviation 46.8 (28.0-62.0) fl RDW Coeff of Ritika 14 (11.0-15.0) % Plt Count 279 (150-400) K/uL MPV 8.60 (7.40-12.00) fL Neut % (Auto) 71.3 (48.0-80.0) % Lymph % (Auto) 18.6 (16.0-40.0) % Crook % (Auto) 8.0 (0.0-15.0) % Eos % (Auto) 1.6 (0.0-7.0) % Baso % (Auto) 0.5 (0.0-1.5) % Neut # (Auto) 6.8 H (1.4-5.7) K/uL Lymph # (Auto) 1.8 (0.6-2.4) K/uL Crook # (Auto) 0.8 (0.0-0.8) K/uL Eos # (Auto) 0.2 (0.0-0.7) K/uL Baso # (Auto) 0.1 (0.0-0.1) K/uL Nucleated RBC % 0.0 /100WBC Nucleated RBCs # 0 K/uL Urine Color YELLOW Urine Appearance CLEAR Urine pH 7.0 (5.0-8.0) Ur Specific [place] 1.020 (1.001-1.035) Urine Protein NEGATIVE (NEGATIVE) mg/dL Urine Glucose (UA) NEGATIVE (NEGATIVE) mg/dL Urine Ketones NEGATIVE (NEGATIVE) mg/dL Urine Occult Blood NEGATIVE (NEGATIVE) Urine Nitrite NEGATIVE (NEGATIVE) Urine Bilirubin NEGATIVE (NEGATIVE) Urine Urobilinogen 2.0 H (<2.0) EU/dL Ur Leukocyte Esterase NEGATIVE (NEGATIVE) Urine RBC 0-1 (0-2/HPF) Urine WBC 0-1 (0-5/HPF) Ur Epithelial Cells FEW (NONE-FEW) Urine Bacteria RARE (NEGATIVE) Departure - Departure Time of Disposition: 11:16 Disposition: Home, Self-Care 01 Clinical Impression: Abdominal pain Qualifiers: Abdominal location: right upper quadrant Qualified Code(s): R10.11 - Right upper quadrant pain - Discharge Information Prescriptions: Diclofenac Potassium [Cataflam] 50 mg PO TID PRN #20 tab PRN Reason: Pain Instructions: Abdominal Pain, Adult, [id number] Referrals: PCP,None [Primary Care Provider] - Additional Instructions: The following information is given to patients seen in the emergency department who are being discharged to home. This information is to outline your options for follow-up care. We provide all patients seen in our emergency department with a follow-up referral. The need for follow-up, as well as the timing and circumstances, are variable depending upon the specifics of your emergency department visit. If you don't have a primary care physician on staff, we will provide you with a referral. We always advise you to contact your personal physician following an emergency department visit to inform them of the circumstance of the visit and for follow-up with them and/or the need for any referrals to a consulting specialist. The emergency department will also refer you to a specialist when appropriate. This referral assures that you have the opportunity for follow-up care with a specialist. All of these measure are taken in an effort to provide you with optimal care, which includes your follow-up. Under all circumstances we always encourage you to contact your private physician who remains a resource for coordinating your care. When calling for follow-up care, please make the office aware that this follow-up is from your recent emergency room visit. If for any reason you are refused follow-up, please contact the Emergency Department at and asked to speak to the emergency department charge nurse. Primary Care [address] [place] [id number] Specialty Care - General Surgery Professional Building [address] [place] [address], [address] [place] [address] 1. Cataflam has been prescribed for you. May take one tab up to three times daily as needed for pain. Please take with food. Do not take additional NSAIDs with this medication. May take Tylenol as needed for pain management. 2. Please follow-up with the general surgeon for further evaluation and HIDA scan. 3. Return to the ED as needed and as discussed. - My Orders Last 24 Hours: My Active Orders 02/08/18 10:30 UA W/MICROSCOPIC [URIN] Stat 02/08/18 10:31 COMPREHENSIVE METABOLIC PN,CMP [CHEM] Stat - Assessment/Plan Last 24 Hours: My Active Orders 02/08/18 10:30 UA W/MICROSCOPIC [URIN] Stat 02/08/18 10:31 COMPREHENSIVE METABOLIC PN,CMP [CHEM] Stat
--- NOTE | 2018-02-08 11:07 | US ---
EXAMINATION: Right upper quadrant ultrasound HISTORY: Flank pain COMPARISON: CT dated 12/25/2017 TECHNIQUE: Grayscale and color Doppler imaging obtained of the right upper quadrant. FINDINGS: The visualized pancreas appears normal. Liver is normal in contour and echotexture without a focal hepatic mass. The gallbladder wall thickness is normal. No pericholecystic fluid or shadowing gallstones. Common bile duct measures 3 mm. Right kidney measures at least 10.8 cm [id number] with out evidence hydronephrosis. No abdominal ascites. No sonographic abnormalities demonstrated within t he right lower quadrant. Sonographic Birch sign is negative. IMPRESSION: 1. Unremarkable right upper quadrant ultrasound.
[2018-02-08 11:30] LABS: CHLORIDE,CL 102 mmol/L (98-107); SODIUM,NA 137 mmol/L (136-148)
== END 2018-02-08 11:58 | disposition home or self-care (01) ==
LOC: MW.ED 10:10
DX: R10.11 Right upper quadrant pain (principal); F17.210 Nicotine dependence, cigarettes, uncomplicated; Z79.899 Other long term (current) drug therapy
CPT/HCPCS: 36415; 76705; 76705-26; 80053; 81001; 85025; 99283; 99284-25